=== PATIENT | female | born 1970 | race Caucasian/White ===

== ENCOUNTER → 2016-03-11 | Outpatient (CLI) | payer OTHER ==
--- NOTE | 2016-03-11 11:58 | US ---
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 Technique: Longitudinal and transverse images were obtained utilizing a 15 MHz transducer. Findings: On physical examination, glandular asymmetry is palpated in the medial right breast. Sonogr aphic interrogation of the symptomatic region demonstrates prominent fibroglandular elements. No juan d or cystic mass is seen. There are no findings to suggest an inflammatory fluid collection. Impression: Benign sonographic findings, BI-RADS 2. Recommendation: Continued clinical follow up with resumption of routine mammographic screening once t he patient is no longer nursing. Findings and follow up recommendations were reviewed with the patient in detail. [facility] will send a result letter to the patient.
== END ==
LOC: FIMAGING 11:20
PROVIDERS: ATTEND Midwife
DX: N63 Unspecified lump in breast (principal); N64.4 Mastodynia